=== PATIENT | male | born 1995 | race Caucasian/White ===

== ENCOUNTER 2019-05-05 18:42 | Emergency (ER) | payer BC, OTHER ==
[~2019-05-05] VITALS: Ht 188 cm; Wt 72.6 kg
[~2019-05-05 18:42] MED LIST: CLON0.5T PO; DULO20CA PO
[2019-05-05 18:56] VITALS: BP 111/80
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
== END 2019-05-05 20:47 | disposition home or self-care (01) ==
LOC: ER 18:42
DX: S60.012A Contusion of left thumb without damage to nail, initial encounter (principal); M25.532 Pain in left wrist; G89.29 Other chronic pain; V29.9XXA Motorcycle rider (driver) (passenger) injured in unspecified traffic accident, initial encounter; Y93.89 Activity, other specified; Y92.488 Other paved roadways as the place of occurrence of the external cause; Y99.8 Other external cause status
CPT/HCPCS: 73110; 73130; 99284